=== PATIENT | female | born 1970 | race Caucasian/White ===

== ENCOUNTER 2016-11-14 21:47 | Emergency (ER) | payer BC ==
--- NOTE | 2016-11-14 22:33 | ED NURSING NOTES ---
Clinical Report - Nurses [facility] [address] [place] [address] 11/14/2016 21:49 Patient: CHRISTOPH THAKKAR TRIAGE Triage time 21:56 Nov 14 2016. Acuity: LEVEL 4. Chief Complaint: SKIN LESION. Alert. No acute distress. --22:01 Trupti Elder R.N. 21:56 11/14/16. BP: 130/66. HR: 89. RR: 16. O2 saturation: 96%. Temp: 98 F. Pain level now: 12/05. --22:01 Trupti Elder R.N. Weight: 68 kg stated. Height/Length: 67 inches Per Patient. BMI: 23.5. --22:00 Trupti Elder R.N. Medications Levothyroxine Sodium Oral (Tablet 125 mcg), daily. --21:58 Trupti Elder R.N. Allergies Benadryl. --21:59 Trupti Elder R.N. History Arrived by private vehicle. Historian: patient. Accompanied by family. Location - genitalia. Onset. (a few days). It is described as burning and painful. No fever. 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 PAST MEDICAL HX: Immunizations: up-to-date. Last normal menstrual period- August. Denies current . SOCIAL HX: Current every day heavy tobacco smoker (cigarette)- 1 pack per day. Occasional alcohol use. No drug use. No infectious disease exposure. SELF HARM ASSESSMENT: A self harm assessment was performed. The patient answered "no" to the question "Do you have thoughts of harming or killing yourself?" and "Have you recently had thoughts about harming or killing others?". FALL RISK ASSESSMENT: Fall risk assessment completed. No fall risk identified. NUTRITIONAL RISK ASSESSMENT: The nutritional risk assessment revealed no deficiencies. FUNCTIONAL ASSESSMENT: Functional assessment: no impairments noted. LEARNING NEEDS ASSESSMENT: The learning needs assessment revealed no barriers. ABUSE ASSESSMENT: Abuse assessment: The patient was asked "Do you feel safe in your home?". SKIN INTEGRITY ASSESSMENT: Skin integrity risk assessment completed. No skin integrity risk identified. --22: Trupti Elder R.N. PROBLEMS: Back Pain. Thyroid Disease. Chronic Headache. Migraine Headache. Headache. LNMP - Last Normal Menstrual Period. Immunizations. Hypothyroidism. --:59 Trupti Elder R.N. ADDITIONAL SURGERIES: Breast Augmentation. Thyroid Surgery. Tubal Ligation. --:59 Trupti Elder R.N. Interventions ID band on patient. To room. --22: Trupti Elder R.N. PHYSICAL ASSESSMENT Ambulatory to room. GENERAL / NEURO / PSYCH: Alert. Appears in pain. Oriented X 4. HEENT: Mucous membranes are pink. RESPIRATORY: Respirations not labored. CVS: Capillary refill less than 2 seconds. GI / : Abdomen nontender. SKIN: Skin is warm and dry. Single wound with erythema, tenderness and increased warmth in the right groin. Skin tenderness present. --22:02 Trupti Elder R.N. NURSING PROGRESS NOTES Patient gowned. Head of bed elevated. Patient identifiers checked. Call light placed in reach. Side rails up. Bed placed in lowest position. Brakes of bed on. --22:03 Trupti Elder R.N. 22:29 11/14/2016 Lidocaine Injection Injectable 1 % given. Allergies verified and confirmed 5 rights. (Administered by provider at bedside). --22:44 Carol Corral 22:30 11/14/16. Behavioral Modification Assistant provided for the general exam by the physician. I & D: Incision and Drainage of abscess performed by SALES OPERATIONS DIRECTOR. Assisted by one nurse. The abscess is located on the (groin). Preparation: Incision and Drainage tray set up with 1% lidocaine. Procedure: skin cleansed with Betadine; a moderate amount of pus was drained. Cavity was irrigated with saline. Sample obtained for cultures. A dressing was applied. Post-procedure: she was stable, no complications, bleeding controlled and dressing intact. Total time of assist / procedure: 15 minutes. ( I and D). --22:54 Trupti Elder R.N. 22:50 11/14/2016 Hydrocodone-APAP (Hydrocodone-Acetaminophen) PO 5/325 mg Tablets 1 tab given. Allergies verified, confirmed 5 rights and sedative warning given to the patient. --22:55 Trupti Elder R.N. 22:50 11/14/2016 Bactrim DS (Sulfamethoxazole-TMP DS) PO Tablets 1 tab given. Allergies verified and confirmed 5 rights. --22:55 Trupti Elder R.N. DISPOSITION / DISCHARGE Departure time: :55 Nov 14 2016. Condition at departure: improved. No learning barriers present. Discharge instructions provided and reviewed with the patient. Reviewed medication(s) side effects, precautions, dosing and course information. Prescription(s) given to the patient. Reviewed referral to a primary care physician for followup. Patient verbalized understanding. Written instructions provided in Hungarian. The patient was discharged home and accompanied by spouse. She left the Emergency Department ambulatory and via private vehicle. Spouse driving. FALL RISK ASSESSMENT: Fall risk assessment completed. No fall risk identified. --22:56 Trupti Elder R.N. 22:55 11/14/16. BP: 131/65. HR: 93. RR: 16. O2 saturation: 98%. Pain level now: 10. --22:56 Trupti Elder R.N. Locked/Released at 11/15/2016 1:15 by Carol Corral,
--- NOTE | 2016-11-14 22:33 | ED CLINICAL REPORT ---
Clinical Report - Physicians/Mid Levels Located Within [facility] [address] [place] [address] 11/14/2016 21:49 Patient: CHRISTOPH THAKKAR Time Seen: 2203; initial patient contact, initial documentation, patient care assumed. Arrived- By private vehicle. Historian- patient. HISTORY OF PRESENT ILLNESS Chief Complaint: LESION. This started about 3 - 4 days ago and is still present and worsening. Not itchy or burning. It is described as painful. It has been located on the right lower extremity. No cause has been identified. Similar symptoms previously: Frequently, as bad. Recent medical care: Not recently seen/assessed. REVIEW OF SYSTEMS No fever. All systems otherwise negative, except as recorded above. PAST HISTORY See nurses notes. PROBLEMS: Back Pain. Thyroid Disease. Chronic Headache. Migraine Headache. Headache. LNMP - Last Normal Menstrual Period. Immunizations. Hypothyroidism. --21:59 Trupti Elder R.N. ADDITIONAL SURGERIES: Breast Augmentation. Thyroid Surgery. Tubal Ligation. --21:59 Trupti Elder R.N. SOCIAL HISTORY Heavy tobacco smoker. Occasional alcohol use. No drug use. No recent travel. Is a local resident. She lives with spouse. FAMILY HISTORY Negative. ADDITIONAL NOTES The nursing notes have been reviewed with agreement regarding the chief complaint, HPI, ROS, PMH and patient medications and allergies. PHYSICAL EXAM Vital Signs: 11/14/2016 21:56 BP: 130/66. HR: 89. RR: 16. O2 saturation: 96%. Temp: 98 F. Pain level now: 8/10. Have been reviewed as normal and appear to be correct. Appearance: Alert. Oriented X3. No acute distress. Eyes: Pupils equal, round and reactive to light. Conjunctivae and eyelids normal. Neck: Neck supple. Respiratory: No respiratory distress. Abdomen: Nontender. No organomegaly. Skin: Skin warm and dry. Normal skin color. No rash. Normal skin turgor. Single medium abscess with fluctuance, pointing, drainage and cellulitis (abscess in R inner thigh, almost genital area, 2nd abscess starting L inner thigh). (multiple scars all over inner thighs, labia, genital area, lower suprapubic and groin from abscesses, pt waxes and has no pubic area, completely bald). Extremities: Normal external inspection. Extremities nontender. Neuro: Oriented X 3. No motor deficit. No sensory deficit. PROGRESS AND PROCEDURES Incision & Drainage of Abscess: The abscess is located in the right thigh. The risks of the procedure, benefits and alternatives were explained. Consent was obtained. Local anesthesia provided using 1% lidocaine. Skin cleansed with Betadine. The abscess was incised with a #11 surgical blade. A small amount of pus was drained. Cavity was irrigated with saline and packed with gauze. Sample obtained for cultures. Estimated blood loss: 2 mL. ( probed to break up inoculates, packed with 1/4 inch plain packing, iodoform not available, pt aware, and tolerated procedure well without issues). Incision & Drainage of Abscess #2: The abscess is located in the left thigh. The risks of the procedure, benefits and alternatives were explained. Consent was obtained. The abscess was incised with a #11 surgical blade. ( full I&D not needed, abscess too small, only poked hole with scalpel, abscess pea size or smaller). Patient counseled in person regarding the patient's stable condition and diagnosis. Differential Diagnosis: Other possible considerations: abscess, cellulitis, hydra suppurativa, bartholin gland, folliculitis. Above considerations are based on history and physical exam. Differential diagnosis was discussed with patient. Disposition: Discharged home in good and improved condition (22:33). Condition: good and stable. CLINICAL IMPRESSION Multiple superficial and deep abscesses to the right lower extremity and left upper extremity with incision and drainage. INSTRUCTIONS Warnings: GENERAL WARNINGS: Return or contact your physician immediately if your condition worsens or changes unexpectedly, if not improving as expected, or if other problems arise. Specifically return if problem worsens. Prescription Medications: Zofran 4 mg: Take 1 orally every six hours as needed for nausea/vomiting. Dispense ten (10). No refills. Substitution is permissible. Bactrim DS 800 mg / 160 mg: take 1 tablet orally every 12 hours for 10 days. No refill. [place] 5 mg / 325 mg tablets: take 1 orally every 6 hours as needed for pain. Dispense ten (10). No refill. Motrin 800 mg tablets: take 1 tablet orally every 8 hours as needed for pain. Dispense thirty (30). No refills. Substitution is permissible. Bactroban 2% ointment: apply small amount to affected area three times daily for 5 days. Dispense twenty-two (22) grams. No refills. Substitution is permissible. Follow-up: Follow up with your doctor in two days as needed and for packing removal. Call for an appointment. Summary of care provided to patient. Understanding of the discharge instructions verbalized by patient. (Electronically signed by Alexia Cho A.R.N.P. 11/14/2016 23:38)
--- NOTE | 2016-11-14 22:33 | ED NURSING NOTES ---
Clinical Report - Nurses [facility] [address] [place] [address] 11/14/2016 21:49 Patient: CHRISTOPH THAKKAR TRIAGE Triage time 21:56 Nov 14 2016. Acuity: LEVEL 4. Chief Complaint: SKIN LESION. Alert. No acute distress. --22:01 Trupti Elder R.N. 21:56 11/14/16. BP: 130/66. HR: 89. RR: 16. O2 saturation: 96%. Temp: 98 F. Pain level now: 12/05. --22:01 Trupti Elder R.N. Weight: 68 kg stated. Height/Length: 67 inches Per Patient. BMI: 23.5. --22:00 Trupti Elder R.N. Medications Levothyroxine Sodium Oral (Tablet 125 mcg), daily. --21:58 Trupti Elder R.N. Allergies Benadryl. --21:59 Trupti Elder R.N. History Arrived by private vehicle. Historian: patient. Accompanied by family. Location - genitalia. Onset. (a few days). It is described as burning and painful. No fever. 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 PAST MEDICAL HX: Immunizations: up-to-date. Last normal menstrual period- August. Denies current . SOCIAL HX: Current every day heavy tobacco smoker (cigarette)- 1 pack per day. Occasional alcohol use. No drug use. No infectious disease exposure. SELF HARM ASSESSMENT: A self harm assessment was performed. The patient answered "no" to the question "Do you have thoughts of harming or killing yourself?" and "Have you recently had thoughts about harming or killing others?". FALL RISK ASSESSMENT: Fall risk assessment completed. No fall risk identified. NUTRITIONAL RISK ASSESSMENT: The nutritional risk assessment revealed no deficiencies. FUNCTIONAL ASSESSMENT: Functional assessment: no impairments noted. LEARNING NEEDS ASSESSMENT: The learning needs assessment revealed no barriers. ABUSE ASSESSMENT: Abuse assessment: The patient was asked "Do you feel safe in your home?". SKIN INTEGRITY ASSESSMENT: Skin integrity risk assessment completed. No skin integrity risk identified. --22: Trupti Elder R.N. PROBLEMS: Back Pain. Thyroid Disease. Chronic Headache. Migraine Headache. Headache. LNMP - Last Normal Menstrual Period. Immunizations. Hypothyroidism. --:59 Trupti Elder R.N. ADDITIONAL SURGERIES: Breast Augmentation. Thyroid Surgery. Tubal Ligation. --:59 Trupti Elder R.N. Interventions ID band on patient. To room. --22: Trupti Elder R.N. PHYSICAL ASSESSMENT Ambulatory to room. GENERAL / NEURO / PSYCH: Alert. Appears in pain. Oriented X 4. HEENT: Mucous membranes are pink. RESPIRATORY: Respirations not labored. CVS: Capillary refill less than 2 seconds. GI / : Abdomen nontender. SKIN: Skin is warm and dry. Single wound with erythema, tenderness and increased warmth in the right groin. Skin tenderness present. --22:02 Trupti Elder R.N. NURSING PROGRESS NOTES Patient gowned. Head of bed elevated. Patient identifiers checked. Call light placed in reach. Side rails up. Bed placed in lowest position. Brakes of bed on. --22:03 Trupti Elder R.N. 22:29 11/14/2016 Lidocaine Injection Injectable 1 % given. Allergies verified and confirmed 5 rights. (Administered by provider at bedside). --22:44 Carol Corral 22:30 11/14/16. General Internist provided for the general exam by the physician. I & D: Incision and Drainage of abscess performed by DROP PIT WORKER. Assisted by one nurse. The abscess is located on the (groin). Preparation: Incision and Drainage tray set up with 1% lidocaine. Procedure: skin cleansed with Betadine; a moderate amount of pus was drained. Cavity was irrigated with saline. Sample obtained for cultures. A dressing was applied. Post-procedure: she was stable, no complications, bleeding controlled and dressing intact. Total time of assist / procedure: 15 minutes. ( I and D). --22:54 Trupti Elder R.N. 22:50 11/14/2016 Hydrocodone-APAP (Hydrocodone-Acetaminophen) PO 5/325 mg Tablets 1 tab given. Allergies verified, confirmed 5 rights and sedative warning given to the patient. --22:55 Trupti Elder R.N. 22:50 11/14/2016 Bactrim DS (Sulfamethoxazole-TMP DS) PO Tablets 1 tab given. Allergies verified and confirmed 5 rights. --22:55 Trupti Elder R.N. DISPOSITION / DISCHARGE Departure time: :55 Nov 14 2016. Condition at departure: improved. No learning barriers present. Discharge instructions provided and reviewed with the patient. Reviewed medication(s) side effects, precautions, dosing and course information. Prescription(s) given to the patient. Reviewed referral to a primary care physician for followup. Patient verbalized understanding. Written instructions provided in Albanian. The patient was discharged home and accompanied by spouse. She left the Emergency Department ambulatory and via private vehicle. Spouse driving. FALL RISK ASSESSMENT: Fall risk assessment completed. No fall risk identified. --22:56 Trupti Elder R.N. 22:55 11/14/16. BP: 131/65. HR: 93. RR: 16. O2 saturation: 98%. Pain level now: 10. --22:56 Trupti Elder R.N. Locked/Released at 11/15/2016 1:15 by Carol Corral,
--- NOTE | 2016-11-14 22:33 | ED ORDER SUMMARY ---
..... Patient: CHRISTOPH THAKKAR OrderSheet [facility] VisitID: [id number] [place] [address] 46y, F Registration Date/Time: 11/14/2016 ORDER SHEET Weight: 68.0 kg (stated) Allergies: Benadryl GENERAL ORDERS: Culture, Wound Deep (Leg) (R inner thigh, genital area) Urgent (22:25 11/14/2016 HBivens A.R.N.P.) (Ack 22:39 RKaruga) (22:44 HSoule) I&D Tray (22:26 11/14/2016 HBivens A.R.N.P.) (22:43 HSoule) Dress Wounds (22:11/14/2016 HBivens A.R.N.P.) (22:43 HSoule) MEDICATION ORDERS: Lidocaine Injection 1% plain (NOW) (22:25 11/14/2016 HBivens A.R.N.P.) (22:44 HSoule) Hydrocodone-APAP PO 5/325 mg (NOW, HIGH ALERT MEDICATION) (22:30 11/14/2016 HBivens A.R.N.P.) (22:55 KKnebel R.N.) Bactrim DS PO (Tablet 800-160 mg) 1 tab (NOW) (22:48 11/14/2016 HBivens A.R.N.P.) (22:55 KKnebel R.N.) IV FLUIDS: ORDER SHEET NOTES: [Electronically signed by Alexia Cho A.R.N.P. (23:38 11/14/2016)] [Electronically signed by Carol Corral (01:15 11/15/2016)] [Electronically locked/signed by Carol Corral (:11/15/2016)]
--- NOTE | 2016-11-14 22:33 | ED ORDER SUMMARY ---
..... Patient: CHRISTOPH THAKKAR OrderSheet [facility] VisitID: [id number] [place] [address] 46y, F Registration Date/Time: 11/14/2016 ORDER SHEET Weight: 68.0 kg (stated) Allergies: Benadryl GENERAL ORDERS: Culture, Wound Deep (Leg) (R inner thigh, genital area) Urgent (22:25 11/14/2016 HBivens A.R.N.P.) (Ack 22:39 RKaruga) (22:44 HSoule) I&D Tray (22:26 11/14/2016 HBivens A.R.N.P.) (22:43 HSoule) Dress Wounds (22:11/14/2016 HBivens A.R.N.P.) (22:43 HSoule) MEDICATION ORDERS: Lidocaine Injection 1% plain (NOW) (22:25 11/14/2016 HBivens A.R.N.P.) (22:44 HSoule) Hydrocodone-APAP PO 5/325 mg (NOW, HIGH ALERT MEDICATION) (22:30 11/14/2016 HBivens A.R.N.P.) (22:55 KKnebel R.N.) Bactrim DS PO (Tablet 800-160 mg) 1 tab (NOW) (22:48 11/14/2016 HBivens A.R.N.P.) (22:55 KKnebel R.N.) IV FLUIDS: ORDER SHEET NOTES: [Electronically signed by Alexia Cho A.R.N.P. (23:38 11/14/2016)] [Electronically signed by Carol Corral (01:15 11/15/2016)] [Electronically locked/signed by Carol Corral (:11/15/2016)]
--- NOTE | 2016-11-15 01:15 | ED DISCHARGE INSTRUCTIONS ---
Patient: CHRISTOPH THAKKAR General Instructions [facility] VisitID: [id number] [place] [address] 46y, F Registration Date/Time: 11/14/2016 Multiple superficial and deep abscesses to the right lower extremity and left upper extremity with incision and drainage. INSTRUCTIONS Warnings: GENERAL WARNINGS: Return or contact your physician immediately if your condition worsens or changes unexpectedly, if not improving as expected, or if other problems arise. Specifically return if problem worsens. Prescription Medications: Zofran 4 mg: Take 1 orally every six hours as needed for nausea/vomiting. Dispense ten (10). No refills. Substitution is permissible. Bactrim DS 800 mg / 160 mg: take 1 tablet orally every 12 hours for 10 days. No refill. Western 5 mg / 325 mg tablets: take 1 orally every 6 hours as needed for pain. Dispense ten (10). No refill. Motrin 800 mg tablets: take 1 tablet orally every 8 hours as needed for pain. Dispense thirty (30). No refills. Substitution is permissible. Bactroban 2% ointment: apply small amount to affected area three times daily for 5 days. Dispense twenty-two (22) grams. No refills. Substitution is permissible. Follow-up: Follow up with your doctor in two days as needed and for packing removal. Call for an appointment. Summary of care provided to patient. Understanding of the discharge instructions verbalized by patient. ADDITIONAL INFORMATION Abscess [Incision & Drainage] An abscess (sometimes called a boil) occurs when bacteria get trapped under the skin and begin to grow. Pus forms inside the abscess as the body responds to the bacteria. An abscess can occur with an insect bite, ingrown hair, blocked oil gland, pimple, cyst, or puncture wound. Treatment of your abscess has required an incision to drain the pus. If the abscess pocket was large, a gauze packing may have been inserted. This will need to be removed and possibly replaced on your next visit. Antibiotics are not required in the treatment of a simple abscess, unless the infection is spreading into the skin around the wound (known as cellulitis). Healing of the wound will take about one to two weeks depending on the size of the abscess. Healthy tissue will grow from the bottom and sides of the opening until it seals over. Home Care: The wound may drain for the first two days. Cover the wound with a clean dry dressing. If the dressing becomes soaked with blood or pus, change it. If a gauze packing was placed inside the abscess cavity, you may be advised to remove it yourself. You may do this in the shower. Once the packing is removed, you should wash the area in the shower or bath 3 to 4 times a day, until the skin opening has closed. If you were prescribed antibiotics, take them as directed until they are all gone. You may use acetaminophen (Tylenol) or ibuprofen (Motrin, Advil) to control pain, unless another pain medicine was prescribed. [ NOTE: If you have liver disease or ever had a stomach ulcer, talk with your doctor before using these medicines.] Follow Up with your doctor as advised by our staff. If a gauze packing was inserted in your wound, it should be removed in 1-2 days. Check your wound every day for the signs of worsening infection listed below. Get Prompt Medical Attention if any of the following occur: Increasing redness or swelling Red streaks in the skin leading away from the wound Increasing local pain or swelling Continued pus draining from the wound two days after treatment Fever of 100.4F (38C) or higher, or as directed by your healthcare provider Abscess (Antibiotic Treatment Only) An abscess (sometimes called a boil) occurs when bacteria get trapped under the skin and begin to grow. Pus forms inside the abscess as the body responds to the bacteria. An abscess can occur with an insect bite, ingrown hair, blocked oil gland, pimple, cyst, or puncture wound. In the early stages, redness and tenderness are the only symptoms. Sometimes, this stage can be treated with antibiotics alone. If the abscess does not respond to antibiotic treatment, it will need to be drained with a small cut, under local anesthesia. Home care The following will help you care for your abscess at home: Soak the wound in hot water or apply hot packs (small towel soaked in hot water) to the area for 20 minutes at a time. Do this three to four times a day. Apply antibiotic cream or ointment onto the skin 3-4 times a day, unless something else was prescribed. Some ointments include an antibiotic plus a local pain reliever. If your doctor prescribed antibiotics, do not stop taking this medication until you have finished the prescribed course or the doctor tells you to stop. You may use an [id number] pain medication to control pain, unless another pain medicine was prescribed. If you have chronic liver or kidney disease or ever had a stomach ulcer or GI bleeding, talk with your doctor before using these any of these. Follow-up care Follow up with your health care provider as advised by our staff. Look at your wound each day for the signs of worsening infection listed below. When to seek medical care Get prompt medical attention if any of the following occur: An increase in redness or swelling Red streaks in the skin leading away from the abscess An increase in local pain or swelling Fever of 100.4F (38C) or higher, or as directed by your health care provider Pus or fluid coming from the abscess Cellulitis You have an infection of the skin known as cellulitis. This usually starts with a scrape, cut, insect bite, blister or other opening in the skin which becomes infected. This is a serious condition. It must be watched closely to be sure the infection is not spreading. With antibiotic treatment, the size of the red area will gradually shrink in size until the skin returns to normal. This will take 7-10 days. The red area should never increase in size once the antibiotic medicine has been started. Occasionally, an infection will be resistant to one antibiotic and another one will have to be used. Home Care: 1) Limit the use of the affected part, since excess movement can cause the infection to spread. 2) If the infection is on your leg, walk as little as possible during the first few days of the treatment. Keep your leg elevated while sitting. This will reduce swelling. 3) Take all of the antibiotic medicine exactly as directed until it is gone. Be careful not to miss any doses, especially during the first seven days. Follow Up with your doctor or this facility as directed. Check the infected area daily for the warning signs listed below. Get Prompt Medical Attention if any of the following occur: -- Spreading area of redness -- Increasing swelling or pain -- Appearance of pus or drainage -- Fever over 100.4 F (38.0 C) oral, or over 101.4 F (38.6 C) rectal, after two days on antibiotics Staph Infection (MRSA) "Staph" is the short name for the common bacteria called "staphylococcus aureus". Staph bacteria are often present on the skin without causing an infection. If it gets under the skin an infection occurs. This causes redness, tenderness, swelling and sometimes fluid drainage. MRSA stands for "Methicillin-Resistant Staph Aureus". Unlike a common staph infection, MRSA bacteria are resistant to the usual antibiotics and harder to treat. Also, MRSA is more toxic than common staph bacteria. It can spread quickly throughout the body and cause a life-threatening illness. MRSA is spread to others by direct physical contact with the bacteria. MRSA can also be transmitted from items contaminated by a person who has the bacteria, such as bandages, towels, bed sheets, or sports equipment. It is not spread through the air. Once you have a MRSA skin infection, you are at risk of having it recur in the future. If MRSA infection is suspected, the doctor may take a wound culture to confirm the diagnosis. Any abscess will be drained. One or sometimes two antibiotics that work against MRSA will be prescribed. Home Care: 1) Take any antibiotics prescribed exactly as directed until they are gone. 2) Follow the same washing procedures as outlined for Household Members below. 3) Keep draining wounds covered with clean, dry bandages. Change dressings as they become soiled. 4) You and those in contact with you should wash their hands frequently with soap and warm water or use an alcohol-based hand apartment leasing consultant. Do this after each time you change the bandage or touch the wound. 5) Avoid sharing personal items such as towels, washcloths, razors, clothing, or uniforms. Wash soiled sheets, towels or clothes in hot water with laundry detergent. Use an automatic clothes dryer set on high to kill any remaining bacteria. 6) Remove any artificial nails and nail lithuanian. 7) If you use a gym, wipe down equipment before and after each use. Treatment Of Household Members If you have been diagnosed with possible MRSA infection, those living with you are at higher risk of carrying the bacteria on their skin or in their nose, even if there is no sign of infection. Bacteria must be removed from the skin of all household members (including you) at the same time, so that it is not passed back and forth. Advise them to remove the bacteria as follows: Wash your whole body (scalp to toes) daily for five days with Hibiclens (chlorhexidine). Scrub fingernails with a brush for one minute twice a day. If any skin infections are present (boils, abscess, infected cut) these must be treated by a doctor. Washing alone will not treat a MRSA infection. Clean counter tops and children's toys; do not share personal items such as toothbrush and razors. It is okay to share glasses, plates, utensils. If antibiotic ointment was prescribed use it as directed. Follow Up with your doctor or as advised by our staff. If a wound culture was taken, call as directed in two days to obtain the results. If the culture result is positive for MRSA, tell medical personnel in the future that you were treated for this type of infection. Get Prompt Medical Attention if any of the following occur: -- Increasing redness, swelling or pain -- Red streaks in the skin around the wound -- Weakness or dizziness -- New appearance of pus or drainage from the wound -- New fever over 100.4 F (38.0 C) Ondansetron Oral disintegrating tablet What is this medicine? ONDANSETRON (on JUAN ANTONIO se aayush) is used to treat nausea and vomiting caused by chemotherapy. It is also used to prevent or treat nausea and vomiting after surgery. How should I use this medicine? These tablets are made to dissolve in the mouth. Do not try to push the tablet through the foil backing. With dry hands, peel away the foil backing and gently remove the tablet. Place the tablet in the mouth and allow it to dissolve, then swallow. While you may take these tablets with water, it is not necessary to do so. Talk to your grounds and nursery specialist regarding the use of this medicine in children. Special care may be needed. What side effects may I notice from receiving this medicine? Side effects that you should report to your doctor or health prompt care rn as soon as possible: allergic reactions like skin rash, itching or hives, swelling of the face, lips, or tongue breathing problems dizziness fast or irregular heartbeat feeling faint or lightheaded, falls fever and chills swelling of the hands and feet tightness in the chest Side effects that usually do not require medical attention (report to your doctor or health prompt care rn if they continue or are bothersome): constipation or diarrhea headache What may interact with this medicine? Do not take this medicine with any of the following medications: -apomorphine -cisapride -dofetilide -dronedarone -pimozide -thioridazine -ziprasidone This medicine may also interact with the following medications: -carbamazepine -phenytoin -rifampicin -tramadol -other medicines that prolong the QT interval (cause an abnormal heart rhythm) What if I miss a dose? If you miss a dose, take it as soon as you can. If it is almost time for your next dose, take only that dose. Do not take double or extra doses. Where should I keep my medicine? Keep out of the reach of children. Store between 2 and 30 degrees C (36 and 86 degrees F). Throw away any unused medicine after the expiration date. What should I tell my health care provider before I take this medicine? They need to know if you have any of these conditions: heart disease history of irregular heartbeat liver disease low levels of magnesium or potassium in the blood an unusual or allergic reaction to ondansetron, granisetron, other medicines, foods, dyes, or preservatives or trying to get breast-feeding What should I watch for while using this medicine? Check with your doctor or health prompt care rn as soon as you can if you have any sign of an allergic reaction. Sulfamethoxazole, Trimethoprim Oral tablet What is this medicine? SULFAMETHOXAZOLE; TRIMETHOPRIM or SMX-TMP (suhl fuh meth OK toby zohl; trye METH oh prim) is a combination of a sulfonamide antibiotic and a second antibiotic, trimethoprim. It is used to treat or prevent certain kinds of bacterial infections. It will not work for colds, flu, or other viral infections. How should I use this medicine? Take this medicine by mouth with a full glass of water. Follow the directions on the prescription label. Take your medicine at regular intervals. Do not take it more often than directed. Do not skip doses or stop your medicine early. Talk to your grounds and nursery specialist regarding the use of this medicine in children. Special care may be needed. This medicine has been used in children as young as 2 months of age. What side effects may I notice from receiving this medicine? Side effects that you should report to your doctor or health prompt care rn as soon as possible: allergic reactions like skin rash or hives, swelling of the face, lips, or tongue breathing problems fever or chills, sore throat irregular heartbeat, chest pain joint or muscle pain pain or difficulty passing urine red pinpoint spots on skin redness, blistering, peeling or loosening of the skin, including inside the mouth unusual bleeding or bruising unusually weak or tired yellowing of the eyes or skin Side effects that usually do not require medical attention (report to your doctor or health prompt care rn if they continue or are bothersome): diarrhea dizziness headache loss of appetite nausea, vomiting nervousness What may interact with this medicine? Do not take this medicine with any of the following medications: aminobenzoate potassium dofetilide metronidazole This medicine may also interact with the following medications: APRIL inhibitors like benazepril, enalapril, lisinopril, and ramipril cyclosporine digoxin diuretics indomethacin medicines for diabetes methenamine methotrexate phenytoin potassium supplements pyrimethamine sulfinpyrazone tricyclic antidepressants warfarin What if I miss a dose? If you miss a dose, take it as soon as you can. If it is almost time for your next dose, take only that dose. Do not take double or extra doses. Where should I keep my medicine? Keep out of the reach of children. Store at room temperature between 20 to 25 degrees C (68 to 77 degrees F). Protect from light. Throw away any unused medicine after the expiration date. What should I tell my health care provider before I take this medicine? They need to know if you have any of these conditions: anemia asthma being treated with anticonvulsants if you frequently drink alcohol containing drinks kidney disease liver disease low level of folic acid or [id number] dehydrogenase poor nutrition or malabsorption porphyria severe allergies thyroid disorder an unusual or allergic reaction to sulfamethoxazole, trimethoprim, sulfa drugs, other medicines, foods, dyes, or preservatives or trying to get breast-feeding What should I watch for while using this medicine? Tell your doctor or health prompt care rn if your symptoms do not improve. Drink several glasses of water a day to reduce the risk of kidney problems. Do not treat diarrhea with over the counter products. Contact your doctor if you have diarrhea that lasts more than 2 days or if it is severe and watery. This medicine can make you more sensitive to the sun. Keep out of the sun. If you cannot avoid being in the sun, wear protective clothing and use a sunscreen. Do not use sun lamps or tanning beds/booths. Hydrocodone Bitartrate, Acetaminophen Oral tablet What is this medicine? ACETAMINOPHEN; HYDROCODONE (a set a KANNAN alivia fen; gauri droe KOE done) is a pain reliever. It is used to treat mild to moderate pain. How should I use this medicine? Take this medicine by mouth. Swallow it with a full glass of water. Follow the directions on the prescription label. If the medicine upsets your stomach, take the medicine with food or milk. Do not take more than you are told to take. Talk to your grounds and nursery specialist regarding the use of this medicine in children. This medicine is not approved for use in children. What side effects may I notice from receiving this medicine? Side effects that you should report to your doctor or health prompt care rn as soon as possible: allergic reactions like skin rash, itching or hives, swelling of the face, lips, or tongue breathing problems confusion feeling faint or lightheaded, falls stomach pain yellowing of the eyes or skin Side effects that usually do not require medical attention (report to your doctor or health prompt care rn if they continue or are bothersome): nausea, vomiting stomach upset What may interact with this medicine? alcohol antihistamines isoniazid medicines for depression, anxiety, or psychotic disturbances medicines for sleep muscle relaxants naltrexone narcotic medicines (opiates) for pain phenobarbital ritonavir tramadol What if I miss a dose? If you miss a dose, take it as soon as you can. If it is almost time for your next dose, take only that dose. Do not take double or extra doses. Where should I keep my medicine? Keep out of the reach of children. This medicine can be abused. Keep your medicine in a safe place to protect it from theft. Do not share this medicine with anyone. Selling or giving away this medicine is dangerous and against the law. Store at room temperature between 15 and 30 degrees C (59 and 86 degrees F). Protect from light. Keep container tightly closed. Throw away any unused medicine after the expiration date. Discard unused medicine and used packaging carefully. Pets and children can be harmed if they find used or lost packages. What should I tell my health care provider before I take this medicine? They need to know if you have any of these conditions: brain tumor Crohn's disease, inflammatory bowel disease, or ulcerative colitis drink more than 3 alcohol-containing drinks per day drug abuse or addiction head injury heart or circulation problems kidney disease or problems going to the bathroom liver disease lung disease, asthma, or breathing problems an unusual or allergic reaction to acetaminophen, hydrocodone, other opioid analgesics, other medicines, foods, dyes, or preservatives or trying to get breast-feeding What should I watch for while using this medicine? Tell your doctor or health prompt care rn if your pain does not go away, if it gets worse, or if you have new or a different type of pain. You may develop tolerance to the medicine. Tolerance means that you will need a higher dose of the medicine for pain relief. Tolerance is normal and is expected if you take the medicine for a long time. Do not suddenly stop taking your medicine because you may develop a severe reaction. Your body becomes used to the medicine. This does NOT mean you are addicted. Addiction is a behavior related to getting and using a drug for a non-medical reason. If you have pain, you have a medical reason to take pain medicine. Your doctor will tell you how much medicine to take. If your doctor wants you to stop the medicine, the dose will be slowly lowered over time to avoid any side effects. You may get drowsy or dizzy when you first start taking the medicine or change doses. Do not drive, use machinery, or do anything that may be dangerous until you know how the medicine affects you. Stand or sit up slowly. There are different types of narcotic medicines (opiates) for pain. If you take more than one type at the same time, you may have more side effects. Give your health care provider a list of all medicines you use. Your doctor will tell you how much medicine to take. Do not take more medicine than directed. Call emergency for help if you have problems breathing. The medicine will cause constipation. Try to have a bowel movement at least every 2 to 3 days. If you do not have a bowel movement for 3 days, call your doctor or health prompt care rn. Too much acetaminophen can be very dangerous. Do not take Tylenol (acetaminophen) or medicines that contain acetaminophen with this medicine. Many non-prescription medicines contain acetaminophen. Always read the labels carefully. Ibuprofen Oral tablet What is this medicine? IBUPROFEN (eye BYOO proe fen) is a non-steroidal anti-inflammatory drug (NSAID). It is used for dental pain, fever, headaches or migraines, osteoarthritis, rheumatoid arthritis, or painful monthly periods. It can also relieve minor aches and pains caused by a cold, flu, or sore throat. How should I use this medicine? Take this medicine by mouth with a glass of water. Follow the directions on the prescription label. Take this medicine with food if your stomach gets upset. Try to not lie down for at least 10 minutes after you take the medicine. Take your medicine at regular intervals. Do not take your medicine more often than directed. A special MedGuide will be given to you by the pharmacist with each prescription and refill. Be sure to read this information carefully each time. Talk to your grounds and nursery specialist regarding the use of this medicine in children. Special care may be needed. What side effects may I notice from receiving this medicine? Side effects that you should report to your doctor or health prompt care rn as soon as possible: allergic reactions like skin rash, itching or hives, swelling of the face, lips, or tongue black or bloody stools, blood in the urine or in vomit breathing problems changes in vision chest pain general ill feeling or flu-like symptoms nausea or vomiting redness, blistering, peeling or loosening of the skin, including inside the mouth slurred speech or weakness on one side of the body stomach pain unexplained weight gain or swelling unusually weak or tired yellowing of eyes or skin Side effects that usually do not require medical attention (report to your doctor or health prompt care rn if they continue or are bothersome): constipation or diarrhea dizziness gas or heartburn stomach upset What may interact with this medicine? Do not take this medicine with any of the following medications: cidofovir ketorolac methotrexate pemetrexed This medicine may also interact with the following medications: alcohol aspirin diuretics lithium other drugs for inflammation like prednisone warfarin What if I miss a dose? If you miss a dose, take it as soon as you can. If it is almost time for your next dose, take only that dose. Do not take double or extra doses. Where should I keep my medicine? Keep out of the reach of children. Store at room temperature between 15 and 30 degrees C (59 and 86 degrees F). Keep container tightly closed. Throw away any unused medicine after the expiration date. What should I tell my health care provider before I take this medicine? They need to know if you have any of these conditions: asthma cigarette smoker drink more than 3 alcohol containing drinks a day heart disease or circulation problems such as heart failure or leg edema (fluid retention) high blood pressure kidney disease liver disease stomach bleeding or ulcers an unusual or allergic reaction to ibuprofen, aspirin, other NSAIDS, other medicines, foods, dyes, or preservatives or trying to get breast-feeding What should I watch for while using this medicine? Tell your doctor or healthcare professional if your symptoms do not start to get better or if they get worse. This medicine does not prevent heart attack or stroke. In fact, this medicine may increase the chance of a heart attack or stroke. The chance may increase with longer use of this medicine and in people who have heart disease. If you take aspirin to prevent heart attack or stroke, talk with your doctor or health prompt care rn. Do not take other medicines that contain aspirin, ibuprofen, or naproxen with this medicine. Side effects such as stomach upset, nausea, or ulcers may be more likely to occur. Many medicines available without a prescription should not be taken with this medicine. This medicine can cause ulcers and bleeding in the stomach and intestines at any time during treatment. Ulcers and bleeding can happen without warning symptoms and can cause . To reduce your risk, do not smoke cigarettes or drink alcohol while you are taking this medicine. You may get drowsy or dizzy. Do not drive, use machinery, or do anything that needs mental alertness until you know how this medicine affects you. Do not stand or sit up quickly, especially if you are an older patient. This reduces the risk of dizzy or fainting spells. This medicine can cause you to bleed more easily. Try to avoid damage to your teeth and gums when you brush or floss your teeth. Mupirocin Topical ointment What is this medicine? MUPIROCIN (myoo PEER oh sin) is an antibiotic. It is used on the skin to treat skin infections. How should I use this medicine? This medicine is for external use only. Follow the directions on the prescription label. Wash your hands before and after use. Before applying, wash the affected area with mild soap and water and pat dry. Apply a small amount to the affected area and rub gently. You can cover the area with a gauze dressing. Do not get this medicine in your eyes. If you do, rinse out with plenty of cool tap water. Do not use your medicine more often than directed. Finish the full course of medicine prescribed by your doctor or health prompt care rn even if you think your condition is better. Do not use over large areas of burnt skin. Talk to your grounds and nursery specialist regarding the use of this medicine in children. Special care may be needed. What side effects may I notice from receiving this medicine? Side effects that you should report to your doctor or health prompt care rn as soon as possible: skin rash, redness, continued swelling, burning, itching, stinging, or pain Side effects that usually do not require medical attention (report to your doctor or health prompt care rn if they continue or are bothersome): dry skin, itching What may interact with this medicine? Interactions are not expected. Do not use any other skin products on the affected area without telling your doctor or health prompt care rn. What if I miss a dose? If you miss a dose, take it as soon as you can. If it is almost time for your next dose, take only that dose. Do not take double or extra doses. Where should I keep my medicine? Keep out of the reach of children. Store at room temperature between 20 and 25 degrees C (68 and 77 degrees F). Throw away any unused medicine after the expiration date. What should I tell my health care provider before I take this medicine? They need to know if you have any of these conditions: an unusual or allergic reaction to mupirocin, polyethylene glycol (PEG), or other topical antibiotic medicine or trying to get breast-feeding What should I watch for while using this medicine? Tell your doctor or health prompt care rn if your skin condition does not begin to improve within 3 to 5 days. You have been given the following additional information: Abscess, Incision And Drainage Abscess, Antiobiotic Treatment Only Cellulitis MRSA Skin Infection, Suspected Or Confirmed Ondansetron Oral disintegrating tablet Sulfamethoxazole, Trimethoprim Oral tablet Hydrocodone Bitartrate, Acetaminophen Oral tablet Ibuprofen Oral tablet Mupirocin Topical ointment (Electronically signed by Alexia Cho A.R.N.P. 11/14/2016 23:38)
--- NOTE | 2016-11-15 01:15 | ED MED RECONCILIATION SUMMARY ---
Patient: CHRISTOPH THAKKAR Medication Reconciliation Report [facility] VisitID: [id number] [address] [place] [address] 46y, F Registration Date/Time: 11/14/2016 Weight: 68.0 kg Height/Length: 67 in. BMI: 23.5 ALLERGIES: Benadryl The patient's Home Medications are listed below: THE FOLLOWING MEDICATIONS NEED TO BE RECONCILED: Levothyroxine Sodium Oral (125 mcg), daily The source(s) of the original Home Medication information: Not obtained. The following Medications were given to the patient in the Emergency Department: Lidocaine [Injection] Injection 1 %, administered: 11/14/2016 10:29:00 PM Hydrocodone-APAP [PO] PO 1 tab, administered: 11/14/2016 10:50:00 PM Bactrim DS [PO] PO 1 tab, administered: 11/14/2016 10:50:00 PM The following Medications were prescribed to the patient: Zofran 4 mg: Take 1 orally every six hours as needed for nausea/vomiting. Dispense ten (10). No refills. Substitution is permissible. -- Alexia Cho, A.R.N.P. Bactrim DS 800 mg / 160 mg: take 1 tablet orally every 12 hours for 10 days. No refill. -- Alexia Cho, A.R.N.P. [place] 5 mg / 325 mg tablets: take 1 orally every 6 hours as needed for pain. Dispense ten (10). No refill. -- Alexia Cho, A.R.N.P. Motrin 800 mg tablets: take 1 tablet orally every 8 hours as needed for pain. Dispense thirty (30). No refills. Substitution is permissible. -- Alexia Cho, A.R.N.P. Bactroban 2% ointment: apply small amount to affected area three times daily for 5 days. Dispense twenty-two (22) grams. No refills. Substitution is permissible. -- Alexia Cho, A.R.N.P.
--- NOTE | 2016-11-15 01:15 | ED MAR SUMMARY ---
..... Medication Administration Record [facility] [address] [place] [address] Patient: CHRISTOPH THAKKAR Visit ID: [id number] 46y, F Weight: 68.0 kg Height/Length: 67 in BMI: 23.5 ALLERGIES: Benadryl Given 22:29 11/14/2016 Carol Corral, Medication Administered: LIDOCAINE [INJECTION], Dose: 1 % Injectable Injection. Medication Ordered: Lidocaine Injection 1% plain (NOW). Given 22:50 11/14/2016 Trupti Elder, R.N. Medication Administered: HYDROCODONE-APAP [PO] (HYDROCODONE-ACETAMINOPHEN), Dose: 1 tab 5/325 mg Tablets PO. Medication Ordered: Hydrocodone-APAP PO 5/325 mg (NOW, HIGH ALERT MEDICATION). Given 22:50 11/14/2016 Trupti Elder, R.N. Medication Administered: BACTRIM DS [PO] (SULFAMETHOXAZOLE-TMP DS), Dose: 1 tab Tablets PO. Medication Ordered: Bactrim DS PO (Tablet 800-160 mg) 1 tab (NOW).
--- NOTE | 2016-11-15 01:15 | ED MAR SUMMARY ---
..... Medication Administration Record [facility] [address] [place] [address] Patient: CHRISTOPH THAKKAR Visit ID: [id number] 46y, F Weight: 68.0 kg Height/Length: 67 in BMI: 23.5 ALLERGIES: Benadryl Given 22:29 11/14/2016 Carol Corral, Medication Administered: LIDOCAINE [INJECTION], Dose: 1 % Injectable Injection. Medication Ordered: Lidocaine Injection 1% plain (NOW). Given 22:50 11/14/2016 Trupti Elder, R.N. Medication Administered: HYDROCODONE-APAP [PO] (HYDROCODONE-ACETAMINOPHEN), Dose: 1 tab 5/325 mg Tablets PO. Medication Ordered: Hydrocodone-APAP PO 5/325 mg (NOW, HIGH ALERT MEDICATION). Given 22:50 11/14/2016 Trupti Elder, R.N. Medication Administered: BACTRIM DS [PO] (SULFAMETHOXAZOLE-TMP DS), Dose: 1 tab Tablets PO. Medication Ordered: Bactrim DS PO (Tablet 800-160 mg) 1 tab (NOW).
--- NOTE | 2016-11-15 01:15 | ED MED RECONCILIATION SUMMARY ---
Patient: CHRISTOPH THAKKAR Medication Reconciliation Report [facility] VisitID: [id number] [address] [place] [address] 46y, F Registration Date/Time: 11/14/2016 Weight: 68.0 kg Height/Length: 67 in. BMI: 23.5 ALLERGIES: Benadryl The patient's Home Medications are listed below: THE FOLLOWING MEDICATIONS NEED TO BE RECONCILED: Levothyroxine Sodium Oral (125 mcg), daily The source(s) of the original Home Medication information: Not obtained. The following Medications were given to the patient in the Emergency Department: Lidocaine [Injection] Injection 1 %, administered: 11/14/2016 10:29:00 PM Hydrocodone-APAP [PO] PO 1 tab, administered: 11/14/2016 10:50:00 PM Bactrim DS [PO] PO 1 tab, administered: 11/14/2016 10:50:00 PM The following Medications were prescribed to the patient: Zofran 4 mg: Take 1 orally every six hours as needed for nausea/vomiting. Dispense ten (10). No refills. Substitution is permissible. -- Alexia Cho, A.R.N.P. Bactrim DS 800 mg / 160 mg: take 1 tablet orally every 12 hours for 10 days. No refill. -- Alexia Cho, A.R.N.P. [place] 5 mg / 325 mg tablets: take 1 orally every 6 hours as needed for pain. Dispense ten (10). No refill. -- Alexia Cho, A.R.N.P. Motrin 800 mg tablets: take 1 tablet orally every 8 hours as needed for pain. Dispense thirty (30). No refills. Substitution is permissible. -- Alexia Cho, A.R.N.P. Bactroban 2% ointment: apply small amount to affected area three times daily for 5 days. Dispense twenty-two (22) grams. No refills. Substitution is permissible. -- Alexia Cho, A.R.N.P.
== END 2016-11-14 22:58 | disposition home or self-care (01) ==
LOC: ED SRH 21:47
DX: L02.415 Cutaneous abscess of right lower limb (principal); L02.416 Cutaneous abscess of left lower limb; E03.9 Hypothyroidism, unspecified; Z79.899 Other long term (current) drug therapy
CPT/HCPCS: 90131; 90309; 90470